=== PATIENT | male | born 1945 | race Caucasian/White ===

== ENCOUNTER 2018-02-03 16:41 | Emergency (ER) | payer BC ==
[~2018-02-03] VITALS: Ht 195.6 cm; Wt 100.0 kg
[~2018-02-03 16:41] MED LIST: AMLODIPINE BESY10 MG PO; AMOXICILLIN500 MG PO; ASPIR 8181 M1 PO; ATORVASTATIN CA10 MG PO; BACTRIM,SEPT1 TABLET PO; BENTYL10 MG PO; DULCOLAX5 MG PO; GEODON20 MG PO; KEFLEX500 MG PO; MELLARIL25 MG PO; MELLARIL50 MG PO; OMEPRAZOLE40 M1 PO; PEPCID20 MG PO; PRILOSEC40 MG PO; SINEMET 25-1001 EACH PO; THIORIDAZINE HC50 MG PO; TRAMADOL HCL50 MG PO; TYLENOL REGULA325 MG PO; ZANTAC150 MG PO; ZIPRASIDONE HCL60 MG PO; ZOFRAN4 MG PO
[2018-02-03 18:18] LABS: HEMATOCRIT 41.6 % (38.0-50.0); HEMOGLOBIN 13.4 G/DL (12.5-16.6); MCHC 32.2 G/DL (30.0-36.0); PLATELET COUNT 226 K/uL (156-360); RBC DIS.WIDTH-SD 45.9 % (39-53); RED BLOOD COUNT 4.62 M/uL (4.00-5.50); WHITE BLOOD COUNT 5.7 K/uL (4.1-10.2)
[2018-02-03 18:28] LABS: CHLORIDE 106 mEq/L (99-109); POTASSIUM 3.8 mEq/L (3.7-5.4); SODIUM 140 mEq/L (136-147)
[2018-02-03 18:29] LABS: GLUCOSE 101 mg/dL (70-99)
[2018-02-03 18:33] LABS: CREATININE 0.8 mg/dL (0.6-1.3); GFR ESTIMATE (CALCULATED) > 59 mL/min/ (58.99-99999)
[2018-02-03 18:34] LABS: UREA NITROGEN (BUN) 15 mg/dL (9-23)
[2018-02-03 18:39] LABS: APPEARANCE CLOUDY ((CLEAR)); BILIRUBIN NEGATIVE; BLOOD LARGE; COLOR AMBER ((YELLOW)); GLUCOSE (STRIP) NEGATIVE; KETONES 5; LEUKOCYTES NEGATIVE; NITRITE NEGATIVE; PROTEIN (STRIP) 100; SPECIFIC GRAVITY 1.026 (1.000-1.030)
[2018-02-03 18:51] LABS: RED BLOOD CELLS TNTC /HPF (0-5); UCUL ADDED? YES
[2018-02-03 21:51] VITALS: BP 123/70
== END 2018-02-03 21:53 | disposition home or self-care (01) ==
LOC: EME 16:41
PROVIDERS: Physician Assistant
DX: N21.0 Calculus in bladder (principal); R31.9 Hematuria, unspecified; J44.9 Chronic obstructive pulmonary disease, unspecified; E78.5 Hyperlipidemia, unspecified; G20 Parkinson's disease; I10 Essential (primary) hypertension; K21.9 Gastro-esophageal reflux disease without esophagitis; Z87.891 Personal history of nicotine dependence
CPT/HCPCS: 74176; 80048; 81003; 85027; 87086; 99281; 99285